=== PATIENT | male | born 1995 | race African-American/Black ===

== ENCOUNTER 2023-02-28 15:29 | Emergency (ER) | payer MEDICAID ==
[~2023-02-28] VITALS: Ht 172.7 cm; Wt 68.0 kg
[2023-02-28 15:34] VITALS: BP 112/58; PULSE 72; RESP 16; TEMP 98.1; O2SAT 99
[2023-02-28] MEDS ORDERED: IBUPROFEN 600MG TABLET PO ONE (15:45)
[2023-02-28] MEDS ORDERED: IBUP-2029 MT (16:25)
[2023-02-28] MEDS ORDERED: IBUPROFEN 600MG TABLET PO NR (17:45)
== END 2023-02-28 18:32 | disposition home or self-care (01) ==
LOC: ER 15:29 → EDBD 15:29 → ER 18:32
DX: S93.402A Sprain of unspecified ligament of left ankle, initial encounter (principal); Z98.890 Other specified postprocedural states; Y93.67 Activity, basketball; Y92.89 Other specified places as the place of occurrence of the external cause; Y99.8 Other external cause status
CPT/HCPCS: 73610; 73630; 99284; Z7610